=== PATIENT | female | born 1955 | race Caucasian/White ===

== ENCOUNTER 2023-12-02 02:16 | Inpatient (IN) | payer OTHER, MEDICARE ==
[~2023-12-02] VITALS: Ht 162.6 cm; Wt 70.9 kg
[2023-12-02] MEDS: IPRATROPIUM 0.5MG/ALBUTEROL 2.5MG INH SOL UD 3ML (DUONEB) NEB ONE (02:45)
[2023-12-02 02:46] LABS: BASO % 0.3 % (0.0-1.0); EOS # 0.1 10^3/uL (0.0-0.5); EOS % 0.8 % (0.0-3.0); HEMATOCRIT 36.7 % (36.0-47.0); HEMOGLOBIN 11.9 g/dl (12.0-15.5); LYMPH # 1.3 10^3/uL (1.5-5.0); LYMPH % 10.4 % (24.0-44.0); MEAN CORPUSCULAR HGB CONC 32.4 g/dl (32.0-36.5); MEAN CORPUSCULAR VOLUME 98.7 fl (80.0-96.0); MONO # 0.6 10^3/uL (0.0-0.8); MONO % 4.6 % (2.0-8.0); NEUTROPHILS # 10.6 10^3/uL (1.5-8.5); NEUTROPHILS % 83.1 % (36.0-66.0); PLATELET COUNT, AUTOMATED 216 10^3/uL (150-450); RED BLOOD COUNT 3.72 10^6/uL (4.00-5.40); WHITE BLOOD COUNT 12.7 10^3/uL (4.0-10.0)
[2023-12-02 02:47] LABS: ABG BASE EXCESS 0.6 (-2.0-2.0); ABG HCO3 26.1 MMOL/L (22.0-26.0); ABG O2 SATURATION 99.1 % (95.0-99.0); ABG PARTIAL PRESSURE CO2 45.3 mmHg (35.0-45.0); ABG PARTIAL PRESSURE O2 144.6 mmHg (75.0-100.0); ABG STANDARD HCO3 25.1 MMOL/L. (22.0-26.0); ABG TOTAL CO2 27.5 MMOL/L (23.0-31.0); ABG pH (ARTERIAL) 7.378 UNITS (7.350-7.450)
[2023-12-02] MEDS: IPRATROPIUM 0.5MG/ALBUTEROL 2.5MG INH SOL UD 3ML (DUONEB) NEB PRN (03:14)
[2023-12-02 03:21] LABS: ALBUMIN 3.3 G/DL (3.2-5.2); ALKALINE PHOSPHATASE 69 U/L (46-116); ALT/SGPT 20 U/L (7.0-40); AST/SGOT 16 U/L (<34); BILIRUBIN,DIRECT 0.2 MG/DL (<0.4); BILIRUBIN,TOTAL 0.7 MG/DL (0.3-1.2); BLOOD UREA NITROGEN 22 MG/DL (9-23); CARBON DIOXIDE LEVEL 30 MMOL/L (20-31); CHLORIDE LEVEL 100 MMOL/L (98-107); CK-MB VALUE MASS 1.8 NG/ML (<3.6); CREATININE FOR GFR 0.73 MG/DL (0.55-1.30); GLOMERULAR FILTRATION RATE > 60.0 (>45); GLUCOSE, FASTING 280 MG/DL (74-106); POTASSIUM SERUM 4.1 MMOL/L (3.5-5.1); SODIUM LEVEL 136 MMOL/L (136-145); TOTAL PROTEIN 6.7 G/DL (5.7-8.2)
[2023-12-02 03:23] LABS: THYROID STIMULATING HORMONE 3.226 uIU/ML (0.55-4.78); THYROXINE (T4) 8.9 UG/DL (4.5-10.9)
[2023-12-02] MEDS: methylPREDNISolone 125MG 2ML VIAL IV ONE (03:25)
[2023-12-02 03:27] LABS: CPK CREATINE PHOSPHOKINASE 54 U/L (34-145); MB/CK RELATIVE INDEX 3.33 (< OR =4)
[2023-12-02] MEDS: FUROSEMIDE 40MG/4ML VIAL IV ONE (05:11)
[2023-12-02] MEDS ORDERED: MOM 30ML SUSPENSION UDC PO PRN (05:35)
[2023-12-02] MEDS ORDERED: GLUCAGON INJ 1MG VIAL SC PRN (05:45)
[2023-12-02] MEDS ORDERED: DEXTROSE 50% 50ML SYRINGE IV PRN (05:45)
[2023-12-02] MEDS ORDERED: GLUCOSE 4 GM CHEW PO PRN (05:45)
[2023-12-02] MEDS: INSULIN LISPRO (NovoLOG) PER UNIT SC SCH ×2 (08:13→19:51)
[2023-12-02] MEDS: SIMVASTATIN 40 MG TAB PO SCH (09:00)
[2023-12-02] MEDS ORDERED: CLOP75TA2 PO (09:50)
[2023-12-02] MEDS ORDERED: PANT40TA29 PO (09:50)
[2023-12-02] MEDS ORDERED: CITA20TA7 PO (09:50)
[2023-12-02] MEDS ORDERED: ALBU8.5H INH (09:50)
[2023-12-02] MEDS ORDERED: SIMV40TA20 PO (09:50)
[2023-12-02] MEDS ORDERED: BUDE10.7 INH (09:50)
[2023-12-02] MEDS ORDERED: MONT10TA97 PO (09:50)
[2023-12-02] MEDS ORDERED: GALZ25CA PO (09:53)
[2023-12-02] MEDS ORDERED: VITATAB73 PO (09:53)
[2023-12-02] MEDS ORDERED: ASCO500T PO (09:53)
[2023-12-02] MEDS ORDERED: MAGN400T2 PO (09:53)
[2023-12-02] MEDS ORDERED: VITAD1000T PO (09:53)
[2023-12-02] MEDS ORDERED: HOME MED LIST COMPLETE! XX SCH (09:55)
[2023-12-02] MEDS: VITAMIN D 1,000 INTERNATIONAL UNITS TABLET PO SCH (10:19)
[2023-12-02] MEDS: ENOXAPARIN 40MG/0.4ML SYRINGE (J1650 PER 10MG) SC SCH (10:19)
[2023-12-02] MEDS: MONTELUKAST 10 MG TAB PO SCH (10:19)
[2023-12-02] MEDS: ASCORBIC ACID 500 MG TAB PO SCH (10:19)
[2023-12-02] MEDS: CitaloPRAM (CeleXA) 20 MG TAB PO SCH (10:19)
[2023-12-02] MEDS: DOCUSATE SODIUM 100MG CAPSULE PO SCH (10:19)
[2023-12-02] MEDS: CLOPIDOGREL 75 MG TAB PO SCH (10:20)
[2023-12-02] MEDS: PANTOPRAZOLE 40MG VIAL IV SCH (10:20)
[2023-12-02] MEDS: MAGNESIUM OXIDE 400MG TAB (MAG-OX) PO SCH (10:20)
[2023-12-02] MEDS: DOXYCYCLINE HYCLATE 100MG TABLET PO SCH (10:20)
[2023-12-02] MEDS: ASPIRIN 81MG CHEW TABLET PO SCH (10:20)
[2023-12-02] MEDS ORDERED: ISOVUE-370 76% 100ML VIAL As Ordered ONE (10:25)
[2023-12-02] MEDS ORDERED: methylPREDNISolone 40MG 1ML VIAL IV SCH (11:00)
[2023-12-02] MEDS: TIOTROPIUM INHALER/CAPSULE (SPIRIVA) INH SCH (11:12)
[2023-12-02] MEDS: SYMBICORT 160/4.5MCG INHALER 6GM INH SCH (11:12)
[2023-12-02] MEDS: IPRATROPIUM 0.5MG/ALBUTEROL 2.5MG INH SOL UD 3ML (DUONEB) NEB SCH (11:12)
[2023-12-02] MEDS: SODIUM CHLORIDE HYPERTONIC 3% 4ML NEB SOL INH SCH (12:52)
[2023-12-02 18:30] VITALS: TEMP 97; O2SAT 90
[2023-12-02 20:00] VITALS: BP 137/68; TEMP 97.7; O2SAT 95
[2023-12-03] VITALS (13 sets, daily range): BP systolic 130–230; BP diastolic 65–110; TEMP 97.3–97.7; O2SAT 82–99
[2023-12-03] MEDS: LIDOCAINE 5% (LIDODERM) PATCH TD ONE (06:35)
[2023-12-03 07:19] LABS: BASO % 0.4 % (0.0-1.0); EOS # 0.1 10^3/uL (0.0-0.5); EOS % 0.7 % (0.0-3.0); LYMPH # 2.7 10^3/uL (1.5-5.0); LYMPH % 28.2 % (24.0-44.0); MEAN CORPUSCULAR HEMOGLOBIN 31.6 pg (27.0-33.0); MEAN CORPUSCULAR HGB CONC 32.4 g/dl (32.0-36.5); MEAN CORPUSCULAR VOLUME 97.7 fl (80.0-96.0); MONO # 0.6 10^3/uL (0.0-0.8); MONO % 6.3 % (2.0-8.0); NEUTROPHILS % 64.1 % (36.0-66.0); PLATELET COUNT, AUTOMATED 212 10^3/uL (150-450); RED BLOOD COUNT 3.48 10^6/uL (4.00-5.40); WHITE BLOOD COUNT 9.4 10^3/uL (4.0-10.0)
[2023-12-03 07:47] LABS: ALBUMIN 3.1 G/DL (3.2-5.2); ALKALINE PHOSPHATASE 64 U/L (46-116); ALT/SGPT 16 U/L (7.0-40); AST/SGOT 11 U/L (<34); BILIRUBIN,TOTAL 0.4 MG/DL (0.3-1.2); BLOOD UREA NITROGEN 23 MG/DL (9-23); CALCIUM LEVEL 9.2 MG/DL (8.3-10.6); CARBON DIOXIDE LEVEL 33 MMOL/L (20-31); CHLORIDE LEVEL 102 MMOL/L (98-107); CREATININE FOR GFR 0.75 MG/DL (0.55-1.30); GLOMERULAR FILTRATION RATE > 60.0 (>45); GLUCOSE, FASTING 177 MG/DL (74-106); SODIUM LEVEL 139 MMOL/L (136-145); TOTAL PROTEIN 6.3 G/DL (5.7-8.2)
[2023-12-03] MEDS: FUROSEMIDE 20MG/2ML VIAL IV ONE (07:53)
[2023-12-03] MEDS: cefTRIAXone SOD 1 GM in D5W MINI-BAG PLUS 50 ML IV SCH (07:54)
[2023-12-03] MEDS: methylPREDNISolone 40MG 1ML VIAL IV SCH (08:35)
[2023-12-03] MEDS ORDERED: LEVALBUTEROL 1.25MG 0.5ML CONCENTRATE NEB INH PRN (23:55)
[2023-12-04] VITALS (13 sets, daily range): BP systolic 120–172; BP diastolic 58–90; TEMP 96.6–97.9; O2SAT 87–99
[2023-12-04] MEDS: methylPREDNISolone 125MG 2ML VIAL IV ONE (00:08)
[2023-12-04] MEDS: FUROSEMIDE 20MG/2ML VIAL IV ONE (00:09)
[2023-12-04 00:40] LABS: VENOUS BASE EXCESS -3.5 (-2.0-2.0); VENOUS HCO3 22.6 MMOL/L (23.0-27.0); VENOUS O2 SATURATION 99.1 % (60.0-80.0); VENOUS PARTIAL PRESSURE CO2 44.5 mmHg (38.0-50.0); VENOUS PARTIAL PRESSURE O2 223.3 mmHg (30.0-50.0); VENOUS PH 7.323 UNITS (7.330-7.430); VENOUS STANDARD HCO3 21.6 MMOL/L; VENOUS TOTAL CO2 23.9 MMOL/L (24.0-28.0)
[2023-12-04 00:51] LABS: BASO % 0.2 % (0.0-1.0); HEMATOCRIT 38.6 % (36.0-47.0); HEMOGLOBIN 12.5 g/dl (12.0-15.5); LYMPH # 1.3 10^3/uL (1.5-5.0); LYMPH % 9.5 % (24.0-44.0); MEAN CORPUSCULAR HEMOGLOBIN 31.9 pg (27.0-33.0); MEAN CORPUSCULAR HGB CONC 32.4 g/dl (32.0-36.5); MEAN CORPUSCULAR VOLUME 98.5 fl (80.0-96.0); MONO # 0.2 10^3/uL (0.0-0.8); MONO % 1.7 % (2.0-8.0); NEUTROPHILS % 87.8 % (36.0-66.0); PLATELET COUNT, AUTOMATED 292 10^3/uL (150-450); RED BLOOD COUNT 3.92 10^6/uL (4.00-5.40); WHITE BLOOD COUNT 13.7 10^3/uL (4.0-10.0)
[2023-12-04 01:08] LABS: CK-MB VALUE MASS 2.1 NG/ML (<3.6)
[2023-12-04 01:10] LABS: CPK CREATINE PHOSPHOKINASE 64 U/L (34-145); MB/CK RELATIVE INDEX 3.28 (< OR =4)
[2023-12-04 01:25] LABS: PROCALCITONIN 0.08 ng/ml
[2023-12-04 01:26] LABS: ALBUMIN 3.7 G/DL (3.2-5.2); ALKALINE PHOSPHATASE 78 U/L (46-116); ALT/SGPT 30 U/L (7.0-40); AST/SGOT 23 U/L (<34); BILIRUBIN,TOTAL 0.7 MG/DL (0.3-1.2); BLOOD UREA NITROGEN 24 MG/DL (9-23); CALCIUM LEVEL 9.3 MG/DL (8.3-10.6); CARBON DIOXIDE LEVEL 27 MMOL/L (20-31); CHLORIDE LEVEL 103 MMOL/L (98-107); CREATININE FOR GFR 0.73 MG/DL (0.55-1.30); GLOMERULAR FILTRATION RATE > 60.0 (>45); GLUCOSE, FASTING 247 MG/DL (74-106); MAGNESIUM LEVEL 1.9 MG/DL (1.8-2.4); POTASSIUM SERUM 4.4 MMOL/L (3.5-5.1); SODIUM LEVEL 139 MMOL/L (136-145); TOTAL PROTEIN 7.4 G/DL (5.7-8.2)
[2023-12-04] MEDS: IPRATROPIUM 0.5MG/ALBUTEROL 2.5MG INH SOL UD 3ML (DUONEB) NEB STA (01:38)
[2023-12-04] MEDS: METOPROLOL TART 25 MG TABLET PO SCH (08:18)
[2023-12-04] MEDS: FUROSEMIDE 40MG/4ML VIAL IV SCH (08:19)
[2023-12-04] MEDS: guaiFENesin ER TABLET 600 MG TAB PO SCH (11:19)
[2023-12-04] MEDS: ACETAMINOPHEN TAB 650MG DOSE (2X325MG) PO PRN (23:37)
[2023-12-05] VITALS (8 sets, daily range): BP systolic 113–147; BP diastolic 58–65; TEMP 96.5–97.7; O2SAT 90–97
[2023-12-05 07:38] LABS: BASO % 0.1 % (0.0-1.0); HEMATOCRIT 35.4 % (36.0-47.0); HEMOGLOBIN 11.6 g/dl (12.0-15.5); LYMPH # 1.9 10^3/uL (1.5-5.0); LYMPH % 15.7 % (24.0-44.0); MEAN CORPUSCULAR HEMOGLOBIN 31.8 pg (27.0-33.0); MEAN CORPUSCULAR HGB CONC 32.8 g/dl (32.0-36.5); MONO # 0.5 10^3/uL (0.0-0.8); MONO % 4.2 % (2.0-8.0); NEUTROPHILS # 9.4 10^3/uL (1.5-8.5); NEUTROPHILS % 79.5 % (36.0-66.0); PLATELET COUNT, AUTOMATED 244 10^3/uL (150-450); RED BLOOD COUNT 3.65 10^6/uL (4.00-5.40); WHITE BLOOD COUNT 11.8 10^3/uL (4.0-10.0)
[2023-12-05 08:10] LABS: BLOOD UREA NITROGEN 27 MG/DL (9-23); CALCIUM LEVEL 9.3 MG/DL (8.3-10.6); CARBON DIOXIDE LEVEL 34 MMOL/L (20-31); CHLORIDE LEVEL 94 MMOL/L (98-107); CREATININE FOR GFR 0.84 MG/DL (0.55-1.30); GLOMERULAR FILTRATION RATE > 60.0 (>45); GLUCOSE, FASTING 218 MG/DL (74-106); MAGNESIUM LEVEL 1.8 MG/DL (1.8-2.4); SODIUM LEVEL 134 MMOL/L (136-145)
[2023-12-05] MEDS: ALPRAZolam 0.25 MG TAB PO PRN (09:13)
[2023-12-05] MEDS: acetaZOLAMIDE 500MG ER CAP PO SCH (12:38)
[2023-12-06] VITALS (7 sets, daily range): BP systolic 136–161; BP diastolic 65–74; TEMP 97–98.3; O2SAT 91–98
[2023-12-06 06:00] LABS: BASO % 0.1 % (0.0-1.0); HEMOGLOBIN 11.8 g/dl (12.0-15.5); LYMPH # 1.3 10^3/uL (1.5-5.0); LYMPH % 13.3 % (24.0-44.0); MEAN CORPUSCULAR HEMOGLOBIN 32.3 pg (27.0-33.0); MEAN CORPUSCULAR HGB CONC 31.9 g/dl (32.0-36.5); MEAN CORPUSCULAR VOLUME 101.4 fl (80.0-96.0); MONO # 0.4 10^3/uL (0.0-0.8); MONO % 4.3 % (2.0-8.0); NEUTROPHILS % 81.9 % (36.0-66.0); PLATELET COUNT, AUTOMATED 241 10^3/uL (150-450); RED BLOOD COUNT 3.65 10^6/uL (4.00-5.40); WHITE BLOOD COUNT 9.8 10^3/uL (4.0-10.0)
[2023-12-06 06:22] LABS: BLOOD UREA NITROGEN 32 MG/DL (9-23); CALCIUM LEVEL 9.4 MG/DL (8.3-10.6); CARBON DIOXIDE LEVEL 30 MMOL/L (20-31); CHLORIDE LEVEL 98 MMOL/L (98-107); CREATININE FOR GFR 0.96 MG/DL (0.55-1.30); GLOMERULAR FILTRATION RATE > 60.0 (>45); GLUCOSE, FASTING 301 MG/DL (74-106); POTASSIUM SERUM 3.8 MMOL/L (3.5-5.1); SODIUM LEVEL 136 MMOL/L (136-145)
[2023-12-06] MEDS: CEFDINIR 300 MG CAP (OMNICEF) PO SCH (08:28)
[2023-12-06] MEDS: methylPREDNISolone 40MG 1ML VIAL IV SCH (08:30)
[2023-12-06] MEDS ORDERED: DOXY100T PO (14:47)
[2023-12-06] MEDS ORDERED: METO1TAB87 PO (14:47)
[2023-12-06] MEDS ORDERED: PRED20TA PO (14:47)
[2023-12-06] MEDS ORDERED: TIOT18INH INH (14:47)
[2023-12-06] MEDS ORDERED: MUCI600T31 PO (14:47)
[2023-12-06] MEDS ORDERED: CEFD300CAP PO (14:47)
== END 2023-12-06 16:42 | disposition home or self-care (01) | DRG 189 ==
LOC: EDBD 02:16 → M ED 02:16 → M ED INP 05:33 → M MSPAV 18:35 → M PCU 12-04 00:17
PROVIDERS: ADMIT Family Medicine; ATTEND Internal Medicine
PROC: B246ZZZ Ultrasonography of Right and Left Heart (ICD-10-PCS; principal; 2023-12-03)
DX: J96.21 Acute and chronic respiratory failure with hypoxia (principal); J18.9 Pneumonia, unspecified organism; J44.1 Chronic obstructive pulmonary disease with (acute) exacerbation; J44.0 Chronic obstructive pulmonary disease with (acute) lower respiratory infection; I50.22 Chronic systolic (congestive) heart failure; J96.22 Acute and chronic respiratory failure with hypercapnia; E11.9 Type 2 diabetes mellitus without complications; E55.9 Vitamin D deficiency, unspecified; E83.42 Hypomagnesemia; I50.9 Heart failure, unspecified; J30.2 Other seasonal allergic rhinitis; J20.8 Acute bronchitis due to other specified organisms; K21.9 Gastro-esophageal reflux disease without esophagitis; E78.5 Hyperlipidemia, unspecified; Z95.5 Presence of coronary angioplasty implant and graft; Z90.49 Acquired absence of other specified parts of digestive tract; Z99.81 Dependence on supplemental oxygen; Z79.82 Long term (current) use of aspirin; Z79.02 Long term (current) use of antithrombotics/antiplatelets; Z79.899 Other long term (current) drug therapy